=== PATIENT | female | born 1960 | race Caucasian/White ===

== ENCOUNTER → 2020-11-20 | Outpatient (CLI) | payer OTHER ==
[~2020-11-20] MED LIST: AMLO-186 PO
--- NOTE | 2020-11-20 16:01 | KCIC ---
Bilateral digital screening mammograms: Reason for examination: Routine screening. Comparison is made to previous studies dated between 11/19/2014 and 09/05/2012. Interpretation was made with the benefit of CAD. The skin and nipples show no abnormalities. No abnormal axillary lymph nodes are seen. The breast par enchyma shows scattered fibroglandular density. (Breast density: Category B.) There continues to be s ome asymmetric parenchyma posterior laterally in the left breast which is stable. There are no new do minant masses, suspicious calcifications or architectural distortions. Impression: No evidence of malignancy. Recommend routine screening. BI-RADS Category 2: Benign. "Our facility is accredited by the [employer] Mammography Program." This patient's information has been entered into a reminder system for the patient to be notified wit h the results of her examination and a target date for the next mammogram. Electronically signed by: Kenzie Rodriguez MD (11/20/2020 3:59 PM) [id number]
--- NOTE | 2020-11-21 04:49 | KCIC ---
DXA BONE DENSITY AXIAL History: Reason: OSTEOPENIA / Spl. Instructions: / History: Postmenopausal Comparison: None. TECHNIQUE: Dual energy x-ray absorptiometry of the lumbar spine and left hip was performed. T-score o f average bone mineral density based was calculated based on standard deviations above or below the e xpected young adult normal value. Diagnostic definitions were established by the [employer]. FINDINGS: The average bone mineral density associated with L1-L4 is 0.979 g/cm^2, corresponding with a T-score of -0.6. The average total bone mineral density associated with left hip is 0.778 g/cm^2, corresponding with a T-score of -1.3. Refer to the worksheets for full detail. IMPRESSION: 1. Osteopenia according to the left hip. Electronically signed by: Dre Mcgraw DO (11/21/2020 4:47 AM) [facility]
--- NOTE | 2020-11-21 07:35 | KCIC ---
Exam Date: 11/20/2020 2:07 PM XR BILATERAL HIP (WITH OR WITHOUT PELVIS) 2 VIEWS_RIGHT Indication: Reason: ONGOING PAIN RT HIP PAST YEAR, HX OF LABRUM TEAR/REPAIR / Spl. Instructions: / H istory: FINDINGS/ IMPRESSION: No acute fracture or dislocation. Mild degenerative changes are seen in the hips bilaterally. Alignm ent is maintained. The soft tissues are within normal limits. Degenerative changes are seen in the S I joints. Electronically signed by: Real Serrano MD (11/21/2020 7:33 AM) [id number]
== END ==
LOC: KCIC MAMMO 13:55
PROVIDERS: ATTEND Family Medicine
DX: Z12.31 Encounter for screening mammogram for malignant neoplasm of breast (principal); M85.88 Other specified disorders of bone density and structure, other site; N95.9 Unspecified menopausal and perimenopausal disorder; M16.0 Bilateral primary osteoarthritis of hip
CPT/HCPCS: 73502; 77067; 77080